=== PATIENT | female | born 1970 | race Caucasian/White ===

== ENCOUNTER 2021-11-25 09:51 | Outpatient (CLI) | payer BC | END 2021-11-25 09:52 | disposition home or self-care (01) | LOC: CSHMRI 09:51 | PROVIDERS: ATTEND Internal Medicine Gastroenterology | DX: K20.0 Eosinophilic esophagitis (principal); K22.2 Esophageal obstruction; R79.89 Other specified abnormal findings of blood chemistry; K80.20 Calculus of gallbladder without cholecystitis without obstruction; N28.1 Cyst of kidney, acquired; K76.89 Other specified diseases of liver | CPT/HCPCS: 74183 ==

== ENCOUNTER 2021-12-09 09:24 | Outpatient (CLI) | payer BC ==
[2021-12-09 19:52] LABS: SARS-CoV-2 PCR by NAA Not Detected (NotDetected)
== END 2021-12-09 09:25 | disposition home or self-care (01) ==
LOC: CSHLAB 09:24
PROVIDERS: ATTEND Surgery
DX: Z20.822 Contact with and (suspected) exposure to COVID-19 (principal); K20.0 Eosinophilic esophagitis; K22.2 Esophageal obstruction; R79.89 Other specified abnormal findings of blood chemistry
CPT/HCPCS: U0003; U0005

== ENCOUNTER 2021-12-12 09:40 | Day surgery (SDC) | payer BC ==
[2021-12-10 11:00] VITALS: BMI 27.8
[2021-12-12] MEDS ORDERED: Lidocaine 1% MPF 2 ML VIAL ONE (11:51)
[2021-12-12] MEDS ORDERED: Midazolam HCl 2 mg/2 ml Vial ONE (12:00)
[2021-12-12] MEDS ORDERED: Famotidine/PF 20 mg/2ml Vial ONE (12:00)
[2021-12-12] MEDS ORDERED: HYDROcodone/Acetaminophen 5/325 mg Tablet PO PRN (12:22)
[2021-12-12] MEDS ORDERED: Acetaminophen 325 MG TAB PO PRN (12:22)
[2021-12-12] MEDS ORDERED: Fentanyl 100 MCG/2 ML VIAL ONE (12:22)
[2021-12-12] MEDS ORDERED: PROPOFOL 20 ML ONE (12:22)
[2021-12-12] MEDS ORDERED: Dexamethasone 20 MG/5 ML VIAL ONE (12:23)
[2021-12-12] MEDS ORDERED: Ketorolac Tromethamine 30 MG/ML VIAL ONE (12:23)
[2021-12-12] MEDS ORDERED: Rocuronium Bromide 10 MG/ML (10ML VIAL) ONE (12:23)
[2021-12-12] MEDS ORDERED: Ondansetron PF 4 MG/2 ML Vial ONE (12:23)
[2021-12-12] MEDS ORDERED: Bupivacaine PF 0.5% 30 ML VIAL ONE (12:23)
[2021-12-12] MEDS ORDERED: Glycopyrrolate 0.2 MG/ML 5 ML SYRINGE ONE (12:23)
[2021-12-12] MEDS ORDERED: CEFAZOLIN 1 GM VIAL ONE (12:23)
[2021-12-12] MEDS ORDERED: Lidocaine 2% PF 5 ML VIAL ONE (12:23)
[2021-12-12] MEDS ORDERED: Metoclopramide HCl 10 MG/2 ML VIAL ONE (12:24)
[2021-12-12] MEDS ORDERED: PHENYLEPHRINE-NS 100 MCG/ML 10 ML SYRINGE ONE (12:55)
[2021-12-12] MEDS ORDERED: ePHEDrine 50 MG/ML VIAL ONE (14:22)
[2021-12-12] MEDS ORDERED: Acetaminophen 500 MG TAB ONE (15:27)
== END 2021-12-12 16:40 | disposition home or self-care (01) ==
LOC: CSHSDC 09:40
PROVIDERS: ATTEND Surgery
PROC: 0FT44ZZ Resection of Gallbladder, Percutaneous Endoscopic Approach (ICD-10-PCS; principal; 2021-12-12)
DX: K80.10 Calculus of gallbladder with chronic cholecystitis without obstruction (principal); Z79.899 Other long term (current) drug therapy
CPT/HCPCS: 88304; C1776; J0690; J1100; J1885; J2001; J2250; J2405; J2704; J2765; J3010; J3490; S0020; S0028

== ENCOUNTER 2022-01-20 08:59 | Outpatient (CLI) | payer BC | END 2022-01-20 09:00 | disposition home or self-care (01) | LOC: CSHMAMMO 08:59 | PROVIDERS: ATTEND Internal Medicine Hematology & Oncology | DX: C50.411 Malignant neoplasm of upper-outer quadrant of right female breast (principal); Z17.0 Estrogen receptor positive status [ER+] | CPT/HCPCS: 77066; G0279 ==

== ENCOUNTER 2023-01-22 08:34 | Outpatient (CLI) | payer BC | END 2023-01-22 08:35 | disposition home or self-care (01) | LOC: CSHMAMMO 08:34 | PROVIDERS: ATTEND Internal Medicine Hematology & Oncology | DX: Z85.3 Personal history of malignant neoplasm of breast (principal); Z98.890 Other specified postprocedural states; Z80.3 Family history of malignant neoplasm of breast | CPT/HCPCS: 77066; G0279 ==

== ENCOUNTER 2024-01-25 11:02 | Outpatient (CLI) | payer BC | END 2024-01-25 11:03 | disposition home or self-care (01) | LOC: CSHMAMMO 11:02 | PROVIDERS: ATTEND Internal Medicine Hematology & Oncology | DX: Z12.31 Encounter for screening mammogram for malignant neoplasm of breast (principal); Z80.3 Family history of malignant neoplasm of breast; Z85.3 Personal history of malignant neoplasm of breast; Z98.890 Other specified postprocedural states | CPT/HCPCS: 77063; 77067 ==